=== PATIENT | female | born 1945 | race Caucasian/White ===

== ENCOUNTER 2021-12-14 08:33 | Observation (INO) ==
--- NOTE | 2021-11-10 09:55 | PAT Medication Instructions ---
Medication Instructions Date of Service November 10, 2021 Home Medications bisoprolol fumarate 10 mg tablet 10 mg PO QAM carbamide peroxide 6.5 % ear drops (Ear Wax Removal Drops) 5 drp OTIC (EAR) UD PRN cyanocobalamin (vitamin B-12) 1,000 mcg tablet (Vitamin B-12) 1,000 mcg PO QAM donepezil 10 mg tablet (Aricept) 10 mg PO QAM levocetirizine 5 mg tablet (Xyzal) 5 mg PO HS potassium chloride 10 mEq tablet,extended release 10 meq PO QAM sertraline 25 mg tablet 25 mg PO QAM Continue as directed carbamide peroxide 6.5 % ear drops (Ear Wax Removal Drops) 5 drp OTIC (EAR) UD PRN (if needed) DO NOT take the morning of surgery cyanocobalamin (vitamin B-12) 1,000 mcg tablet (Vitamin B-12) 1,000 mcg PO QAM potassium chloride 10 mEq tablet,extended release 10 meq PO QAM Take morning of surgery With a small sip of water, OTHERWISE NOTHING TO EAT OR DRINK AFTER MIDNIGHT: bisoprolol fumarate 10 mg tablet 10 mg PO QAM donepezil 10 mg tablet (Aricept) 10 mg PO QAM sertraline 25 mg tablet 25 mg PO QAM Take evening before surgery levocetirizine 5 mg tablet (Xyzal) 5 mg PO HS Other Notes If you have any questions please call us at [phone] or [phone] or [phone] or [phone]
--- NOTE | 2021-11-15 09:45 | Anesthesiology Consultation ---
Date of Service November 15, 2021 Assessment & Plan (1) Encounter for pre-operative examination: - COVID screening: Per assessment on 11/15: No known COVID-19 positive contacts or current COVID-19 related symptoms. Travel screen negative. Patient vaccinat ed. Surgeon arranging preop COVID testing (scheduled 12/12; [place]). Awaiting results. - Anesthesia: Discussed SAB- patient states she "does not believe in spinals" an d prefers general anesthesia if possible. Advised patient that ultimate decision will be made after discussion with patient/surgeon/anesthesiologist SAGE REINOSO. Chart Review Chart Review: Acceptable Risk for Surgery and Patient seen in Pre Admission Testing Teaching & Discussion Pre-Anesthesia Teaching/Discussion Notes: Instructed NPO after midnight before surgery,except medications with 15 cc of water. Medication instructions provided according to the PAT guidelines. History Surgery Operation Date: 12/14/21 09:15 Proposed Procedures p Right Total Knee Arthroplasty - Moreno Dukes DO Height/Weight Height: 5 ft 1 in Weight: 55.2 kg Allergies Allergy/AdvReac Type Severity Reaction Status Date / Time codeine AdvReac Severe [place] "out Verified 11/11/21 10:45 of my mind" morphine AdvReac Severe [place] "out Verified 11/11/21 10:45 of my mind" Medications Home Medications Medication Instructions Recorded Confirmed Last Taken bisoprolol fumarate 10 mg tablet 10 mg PO QAM 11/04/21 11/04/21 Unknown carbamide peroxide 6.5 % ear drops 5 drp OTIC (EAR) UD PRN 11/04/21 11/04/21 Unknown (Ear Wax Removal Drops) cyanocobalamin (vitamin B-12) 1,000 mcg PO QAM 11/04/21 11/04/21 Unknown 1,000 mcg tablet (Vitamin B-12) donepezil 10 mg tablet (Aricept) 10 mg PO QAM 11/04/21 11/04/21 Unknown levocetirizine 5 mg tablet (Xyzal) 5 mg PO HS 11/04/21 11/04/21 Unknown potassium chloride 10 mEq 10 meq PO QAM 11/04/21 11/04/21 Unknown tablet,extended release sertraline 25 mg tablet 25 mg PO QAM 11/04/21 11/04/21 Unknown Past Medical History Medical History Chronic back pain Degenerative disc disease Dementia "Early stages" A+Ox3 at PAT visit 11/15/21, lives alone/independently [id number] will be present postoperatively to aid with recovery Depression Hx of renal calculi Hypertension Exercise / Class Metabolic Activity II 4-5 Yardwork/Stairs/Walk up hill (one FS (no CP, no SOB)) Past Family History Family History Sister FHx: dementia Other No family history of adverse response to anesthesia Past Surgical History Surgical History History of appendectomy History of lithotripsy History of lumbar surgery x3 History of tonsillectomy S/P cataract extraction R/L S/P RADHA-BSO Past Anesthesia History No Hx of Anesthesia Complications and No Family Hx of Anesthesia Complications History of PONV No Hx of PONV and No Hx of Motion Sickness Social History Smoking Status: Never smoker Do You Dip or Chew Tobacco: No Hx Alcohol Use: Yes (Quit approximately ) Hx Substance Use: No substance use type: does not use Review of Systems Chronic, intermittent cough r/t allergies, unchanged. Patient denies chest pain, shortness of breath, dyspnea on exertion, fever, chills, palpitations. Physical Exam Vital Signs VITALS BP 115/63 P 66 TEMP 99.1 SP02 99%RA RESP 16 PHYSICAL Full cervical extension range of motion (+ cervicalgia). Full TMJ range of motion. TMD 2.5 finger breaths (small chin) Mallampati Score 1 Dentition: intact, upper front teeth implants Lungs: clear throughout to auscultation Cardiac: regular rate and rhythm, no murmurs noted Spine: normal Carotid arteries: negative bruit Extremities: no edema Short neck Lab Results Anesthesia Preop Results Results Anesthesia Widget: WBC 6.14 K/uL (4.8-10.8) 11/15/21 Hgb 13.4 g/dL (12.0-16.0) 11/15/21 Hct 40.4 % (37-47) 11/15/21 Plt 232 K/uL (130-400) 11/15/21 Na 141 mmol/L (136-145) 11/15/21 K 4.1 mmol/L (3.5-5.1) 11/15/21 Cl 104 mmol/L (98-107) 11/15/21 CO2 30 mmol/L (21-32) 11/15/21 BUN 15 mg/dl (6-23) 11/15/21 Creat 0.59 mg/dl (0.6-1.2) L 11/15/21 Glucose Level 135 mg/dl (70-99(Fasting)) H 11/15/21 PT 10.3 Seconds (9.0-12.0) 11/15/21 PTT 21.9 Seconds (21.0-31.0) 11/15/21 INR 1.0 (0.9-1.1) 11/15/21 HA1c 6.3 % (4.5-5.6) H 11/15/21 Urine Color Yellow 11/15/21 Urine Appearance Clear (Clear) 11/15/21 Urine pH 5.0 (4.5-7.5) 11/15/21 Urine Specific [place] 1.028 (1.000-1.030) 11/15/21 Urine Protein Negative (Negative) 11/15/21 Urine Glucose (UA) 2+ (Negative) H 11/15/21 Urine Ketones Trace (Negative) H 11/15/21 Urine Blood Negative (Negative) 11/15/21 Urine Nitrite Negative (Negative) 11/15/21 Urine Bilirubin Negative (Negative) 11/15/21 Urine Urobilinogen Negative (Negative) 11/15/21 Urine Leukocyte Esterase Negative (Negative) 11/15/21 Blood Type O Positive 11/15/21 Antibody Screen NEGATIVE 11/15/21 Testing Electrocardiogram Date: 11/15/21 Findings: + NSR @ (66) Chest X-Ray Date: 11/15/21 FINDINGS: The cardiomediastinal and hilar silhouettes are within normal limits. No pneumothorax, pleural effusion, airspace consolidation or overt pulmonary edema. Cholecystectomy. Degenerative changes of the shoulders and spine. IMPRESSION: No acute process. Stress Test Date: 08/05/18 Type: exercise No evidence of prior myocardial infarction or myocardial ischemia per conclusions. Fair exercise capacity for age. Equivocal exercise ECG for ischemia. Stress echo imaging negative for prior infarction or ischemia. EF gr eater than 50%.
--- NOTE | 2021-11-25 09:24 | History & Physical Report ---
Date of Service November 25, 2021 date of surgery: 12/14/21 Procedure: Right Total Knee Arthroplasty Surgeon: Moreno Dukes Assessment & Plan (1) Arthritis of right knee: Plan: Further care discussed with patient and at this point in time has failed conservative measures and would like to proceed with a right total knee replacement. Plan on discharge will be home with home health physical therapy. DVT prophylaxiswith TEDs, SCDs and will also place on aspirin 81 mg p.o. b.i.d. for a month postop. Patient will have follow up appointment in our office two weeks post op for staple/suture removal and re-evaluation. Patient otherwise has no other questions or concerns. The risks and benefits have been discussed including, but not limited to, risk of infection, nerve injury, stiffness, loss of motion, failure to improve, etc. Reasonable outcomes and options of treatment were discussed. An explanation of appropriate alternatives to the procedure that may be advantageous were discussed and their risks and benefits, as well as the risks and benefits of not proceeding with treatment. I offered to answer any additional inquiries concerning the treatment involved. All the patient's questions were answered. The patient is agreeable, understanding of the treatment plan and alternatives, and wishes to proceed with the treatment plan. History of Present Illness Chief Complaint: Right knee pain Primary Care Provider: NO PCP Destinee is a 76 year old who complains of right knee pain, presents for pre-op evaluation prior to a right total knee replacement by Dr Dukes at [facility]. she complains of pain, decreased range of motion and stiffness. Currently the patient states that the symptoms are moderate-severe. The pain is described as aching, sharp and throbbing. her symptoms are aggravated by ascending stairs, daily activities, first steps while awake walking. Prior NSAIDs include IBU and Aleve. she has been treated with previous cortisone, visco as well as fluid flow injections in the past without much relief. Allergies Allergy/AdvReac Type Severity Reaction Status Date / Time codeine AdvReac Severe [place] "out Verified 11/11/21 10:45 of my mind" morphine AdvReac Severe [place] "out Verified 11/11/21 10:45 of my mind" Home Medications Medication Instructions Recorded Confirmed Type bisoprolol fumarate 10 mg tablet 10 mg PO QAM 11/04/21 11/04/21 History carbamide peroxide 6.5 % ear drops 5 drp OTIC (EAR) UD PRN 11/04/21 11/04/21 History (Ear Wax Removal Drops) cyanocobalamin (vitamin B-12) 1,000 mcg PO QAM 11/04/21 11/04/21 History 1,000 mcg tablet (Vitamin B-12) donepezil 10 mg tablet (Aricept) 10 mg PO QAM 11/04/21 11/04/21 History levocetirizine 5 mg tablet (Xyzal) 5 mg PO HS 11/04/21 11/04/21 History potassium chloride 10 mEq 10 meq PO QAM 11/04/21 11/04/21 History tablet,extended release sertraline 25 mg tablet 25 mg PO QAM 11/04/21 11/04/21 History Past Med/Surg History Medical History Chronic back pain Degenerative disc disease Dementia "Early stages" A+Ox3 at PAT visit 11/15/21, lives alone/independently [id number] will be present postoperatively to aid with recovery Depression Hx of renal calculi Hypertension Surgical History History of appendectomy History of lithotripsy History of lumbar surgery x3 History of tonsillectomy S/P cataract extraction R/L S/P RADHA-BSO Family History Sister FHx: dementia Other No family history of adverse response to anesthesia Social History Smoking Status: Never smoker Second Hand Exposure: No; Hx Alcohol Use: Yes (Quit approximately ) Hx Substance Use: No Preferred Language: Wolof Communication Ability: Effective 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 Beliefs That Will Affect Care: None Current Living Situation: Alone Feels Safe at Home: Yes Assistive Devices: Cane and Walker Review of Systems Review of Systems: All systems reviewed & are unremarkable except as noted in HPI & below Constitutional: no fever, no chills and no sweats Respiratory: no cough and no dyspnea Cardiovascular: no chest pain, no dyspnea and no orthopnea Gastrointestinal: no abdominal pain, no nausea and no vomiting Musculoskeletal: as per Subjective / HPI Physical Exam Physical Exam: HT: 5ft 1in WT: 55.2kg Constitutional: WD/WN, vitals as above no acute distress Respiratory: normal respiratory effort, lungs clear to auscultation no respiratory distress, no labored breathing and does not use accessory muscles Cardiovascular: RRR, no murmur, no edema Gastrointestinal (Abdomen): normal bowel sounds, soft, nontender, no hepatosplenomegaly Musculoskeletal: Knee: + knee abnormal to inspection (RIGHT KNEE), + effusion (+1 effusion), + surgical incision (well healed portals), + limited ROM of knee (ROM 0/3/110), + knee ROM with crepitation, + joint line tenderness (medial joint line) and + Nimesh's sign positive; no deformity, no skin erythema, no ecchymosis, no valgus laxity, no varus laxity, anterior drawer test negative, Chanelle's sign negative and pivot shift test negative Results & Data Results & Data ([facility]) Diagnostic Findings Right Knee X-ray: Right knee series showing advanced degenerative changes to the right knee, narrowing of the medial compartment and patello-femoral joint with patellar spurring noted, findings showing joint space narrowing of the medial compartment and patello-femoral joint, osteophyte formation and subchondral sclerosis noted. overall varus alignment. no acute bony pathology noted.
[~2021-12-14 08:33] MED LIST: ACETAMINOPHEN 500 MG TAB PO SCH; BUPIVACAINE 0.5 % 5 MG/1 ML PF 10ML VIAL ONE; CeleBREX 200 MG CAP PO SCH; FAMOTIDINE 20 MG TAB PO SCH; GABAPENTIN 300 MG CAP PO SCH; LIDOCAINE 2% MPF LOCAL 5 ML VIAL INFIL ONE; LR 500ML BOLUS, THEN 15ML/HR IV SCH; METOCLOPRAMIDE HCL 10 MG TABLET PO SCH; MIDAZOLAM HCL 1 MG/ML 2ML VIAL ONE; ONDANSETRON INJ 2 MG/ML 2 ML VIAL ONE; PROPOFOL IV EMULSION 10 MG/ML 20 ML VIAL IV ONE; ROPIVACAINE 0.5% 5 MG/ML 30 ML VIAL ONE; ROPIVACAINE 0.5% HCL/PF 150 MG, BUPIVACAINE 0.75% MPF 20 ML, EPINEPHrine 30MG/30ML (OR ... INFIL SCH; TRANEXAMIC ACID 1,000 MG **IV Intra-op IV SCH; TRANEXAMIC ACID 1,000 MG **IV Pre-op IV SCH; ceFAZolin 2000MG 2,000 MG/15 ML SYR IV SCH; dexAMETHasone 4 MG TAB PO SCH; fentaNYL citrate 100 MCG/2 ML VIAL ONE
[2021-12-14] MEDS ORDERED: MIDAZOLAM HCL 1 MG/ML 2ML VIAL ONE (08:51)
[2021-12-14] MEDS ORDERED: PHENYLEPHRINE HCL 10 MG/ML VIAL ONE (09:02)
[2021-12-14] MEDS ORDERED: PROPOFOL IV EMULSION 10 MG/ML 20 ML VIAL IV ONE (09:45)
--- NOTE | 2021-12-14 09:58 | History & Physical Bridge Note ---
Date of Service December 14, 2021 History & Physical Bridge Note I have examined the patient, reviewed the History & Physical and in the interval since the performance of the History & Physical I have noted the following changes of clinical significance: no changes noted
[2021-12-14] MEDS ORDERED: ORTHO JOINT ANESTHETIC ONE (10:45)
[2021-12-14] MEDS ORDERED: ePHEDrine sulfate 50 MG/ML AMP IV PRN (10:53)
[2021-12-14] MEDS ORDERED: ATROPINE SULFATE 0.1 MG/ML 10ML SYR IV PRN (10:53)
[2021-12-14] MEDS ORDERED: ONDANSETRON INJ 2 MG/ML 2 ML VIAL IV PRN ×2 (10:53→15:50)
[2021-12-14] MEDS ORDERED: KETOROLAC 30 MG/ML VIAL IV PRN (10:53)
[2021-12-14] MEDS ORDERED: HYDROmorphone INJ 1 MG/ML SYRINGE IV PRN (10:53)
[2021-12-14] MEDS ORDERED: ePHEDrine sulfate 50 MG/ML AMP ONE (12:11)
--- NOTE | 2021-12-14 12:13 | Operative Report ---
Post Operative Report Pre & Post Diagnosis Operation Date: 12/14/21 10:30 Pre-Op Diagnosis: Right Knee Osteoarthritis Post-Op Diagnosis: Right Knee Osteoarthritis I identified the patient and participated in the time-out.: Yes Procedure Operation Date: 12/14/21 10:30 Actual Procedures p Right Total Knee Arthroplasty(Right) utilizing Oakes & XOG journey 2 patient matched total knee arthroplasty size femur 4 tibia to polyten patella 29 oval- Moreno Dukes DO Surgeon Moreno Dukes DO Drying Equipment Operator Chalo QURESHI Estimated Blood Loss 5 Findings Consistent with Post-Op Diagnosis Patient presents with severe end-stage tricompartmental DJD right knee with eburnated [id number] subchondral cystic changes marginal osteophytes moderate to large effusion Specimens Bone and cartilage Drains Medium bore Hemovac Anesthesia Type MAC Spinal Regional Complications none Disposition Accompanied Patient To Recovery: No Disposition: Recovery Room Indications Patient presents with severe end-stage tricompartmental DJD failed attempted conservative management clinic physical therapy anti-inflammatories relative rest activity modification corticosteroid injection viscosupplementation above intraoperative findings were noted Description of Procedure After proper prepping and draping of the Right lower extremity anterior midline incision was made over the region of the extensor extensor mechanism after meticulous hemostasis was obtained and maintained in subcutaneous tissues a medial parapatellar incision was made The patella was subluxed lateralward the medial lateral gutter were cleaned from any hypertrophic synovitis and scar tissue of the distal femoral block was placed and the distal femoral osteotomy cut was made subsequently the chamfers anterior and posterior osteotomy cuts were made utilizing the 4-in-1 block the tibia was subsequently subluxed anteriorward medial and ateral meniscal remnants were excised in their entirety remnants of the anterior and posterior cruciate ligaments were excised in their entirety excellent exposure of the proximal tibia was obtained the tibial osteotomy guide was placed on the proximal tibial osteotomy cut was made once again the knee was irrigated with copious amounts of sterile saline solution the patella was subsequently everted lateralward thickened scar tissue around the patella was removed the patella was subsequently cut utilizing a freehand technique and was drilled prepared for final preparation and placement of patella socially flexion-extension gaps were checked and the equal and symmetric trials were placed to the appropriate femoral and tibial trials with poly-spacer being placed for equal flexion and extension gaps and full range of motion including extension to 0 and flexion to 140 the trial components after having been taken to recovery range of motion was subsequently removed meticulous hemostasis was obtained and maintained subsequently a knee block injection of joint cocktail including ropivacaine 0.5% 150 mg. Bupivacaine 0.5% epinephrine 1-200,030 mL's toradol 30 mg dexamethasone 4 mg ketamine 10 mg clonidine 100 micrograms normal saline solution 30 mg was infiltrated into the soft tissues of the posterior knee medial lateral gutters and periosteal synovium special attention was paid to protect neurovascular structures at all times subsequently trial components having been removed the knee was irrigated with sterile saline solution. debris was removed the proximal tibia was subsequently prepared and was made ready for the placement of the tibial component tibial component was also cemented and tamped into position the femoral component was subsequently placed and cemented in the position the patellar component was subsequently cemented in position because hemostasis once again obtained and maintained wound having been thoroughly irrigated with debridement and debridement lavage was performed as well as a medial parapatellar incision closed with #1 Vicryl in interrupted fashion subcutaneous was closed with #2 Vicryl skin was closed with skin clips. PA-C was necessary for prepping and drapping as well as wound closure of deep fascia Sub cutaneous tissue and skin and was necessary for the case. A sterile compressive dressing was placed patient was taken to recovery in stable condition of report dictated by Ernst I attest to the content of the Intraoperative Record and any orders documented therein. Any exceptions are noted below.Due to the complex nature of the procedure, the entire surgery was performed with the operational assistance of Chalo QURESHI. The patient care assistant, under direct supervision, was involved in the actual performance of all aspects of the surgical procedure including hemostasis, tissue retraction and incision, instrument management, patient positioning, and wound closure. I attest to the content of the Intraoperative Record and any orders documented therein. Any exceptions are noted below.
--- NOTE | 2021-12-14 14:00 | XRay Report ---
RIGHT KNEE 2 VIEWS History: Right total knee arthroplasty. Degenerative arthritis. Postop. FINDINGS: The patient is status post a right total knee arthroplasty. The hardware is intact. No frac ture or dislocation. Surgical drains are in place. IMPRESSION: Right total knee arthroplasty. No evidence for hardware complication. ACT 112: Negative or not required by law. Electronically signed by: Derrick Davison M.D. 12/14/2021 1:59 PM
--- NOTE | 2021-12-14 14:14 | Anesthesiology Progress Note ---
Date of Service December 14, 2021 Anesthesia Post Procedure Vital Signs Vital Signs: Temp Pulse Pulse Resp BP Pulse Ox O2 Del Method 12/14/21 14:05 66 12 101/55 L 96 Nasal Cannula 12/14/21 13:55 64 17 100/59 L 92 Nasal Cannula 12/14/21 13:45 36.2 C L 65 19 101/58 L 95 Nasal Cannula 12/14/21 13:35 67 13 99/57 L 98 Oxymask 12/14/21 13:25 71 15 109/60 96 Oxymask 12/14/21 13:15 68 12 103/62 96 Oxymask 12/14/21 13:05 73 12 101/60 100 Oxymask 12/14/21 12:55 36.0 C L 72 14 105/54 L 95 Oxymask 12/14/21 08:59 36.9 C 57 L 16 154/79 H 95 Room Air O2 Flow Rate 12/14/21 14:05 2 12/14/21 13:55 2 12/14/21 13:45 2 12/14/21 13:35 2 12/14/21 13:25 4 12/14/21 13:15 6 12/14/21 13:05 9 12/14/21 12:55 9 12/14/21 08:59 Pain Intensity Right Knee: Pain Intensity: 0 Transfer of Care Handoff Completed per policy Notes Mental Status: alert / awake / arousable Patient Amnestic to Procedure: Yes Nausea / Vomiting: adequately controlled Pain: adequately controlled Airway Patency, RR, SpO2: stable & adequate BP & HR: stable & adequate Hydration State: stable & adequate Neuraxial Anesthesia: was administered and sensory block is resolving Anesthetic Complications: no major complications apparent
[2021-12-14] MEDS ORDERED: HYDROmorphone INJ 0.5 MG/0.5 ML SYR IV PRN (15:50)
[2021-12-14] MEDS ORDERED: traMADol HCL 50 MG TABLET PO PRN (15:50)
[2021-12-14] MEDS ORDERED: MAGNESIUM HYDROXIDE SUSP 30 ML UDC PO PRN (15:50)
[2021-12-14] MEDS ORDERED: bisacodyL 10 MG SUPP PR PRN (15:50)
[2021-12-14] MEDS ORDERED: NALOXONE HCL 0.4 MG/1 ML VIAL/CARP IV PRN (15:50)
[2021-12-14] MEDS ORDERED: diphenhydrAMINE 50 MG/ML VIAL IV PRN (15:50)
[2021-12-14] MEDS: ACETAMINOPHEN 500 MG TAB PO SCH ×2 (16:23→21:56)
[2021-12-14] MEDS: SODIUM CHLORIDE 0.9% 1000ML 1,000 ML IV SCH (16:23)
[2021-12-14] MEDS: ceFAZolin 1000MG 1,000 MG/7.5 ML SYR IV SCH (18:48)
[2021-12-14] MEDS: ASPIRIN 81 MG ECTAB PO SCH (20:10)
[2021-12-14] MEDS: DOCUSATE SODIUM 100 MG CAP PO SCH (20:10)
[2021-12-14] MEDS ORDERED: SENNA 8.6 MG TAB PO SCH (21:00)
[2021-12-15] MEDS: SODIUM CHLORIDE 0.9% 1000ML 1,000 ML IV SCH (02:30)
[2021-12-15] MEDS: ceFAZolin 1000MG 1,000 MG/7.5 ML SYR IV SCH (03:16)
[2021-12-15] MEDS ORDERED: HALOPERIDOL LACTATE 5 MG/ML 1 ML VIAL IM STA (04:42)
[2021-12-15] MEDS: ACETAMINOPHEN 500 MG TAB PO SCH ×2 (06:02→13:56)
--- NOTE | 2021-12-15 07:37 | Orthopedic Progress Note ---
Date of Service December 15, 2021 Assessment & Plan (1) History of total right knee replacement: Plan: POD #1 s/p right TKA pt/ot dvt proph with CARLIN/SCD/ASA she does live alone and discussed rehab, she is not interested in this, states her family member is coming to stay with her for a few weeks, will discuss w/ CM poss HHPT Admission and Anticipated Discharge Date Admission Date: December 14, 2021 Supervising Physician Co-Signing Physician Notes Patient seen and examined. Agree with TITUS Larry's note as above. Patient is doing very well. She has been ambulating very frequently in the hallway today without difficulty. She denies significant pain. She feels ready to go home. Plan for discharge. Subjective POD #1 s/p Right TKA she is alert and oriented, in restraints. was combative last evening. Review of Systems Constitutional: no fever, no chills and no sweats Respiratory: no cough and no dyspnea Cardiovascular: no chest pain and no dyspnea Gastrointestinal: no abdominal pain, no nausea and no vomiting Physical Exam Physical Exam: Vital Signs Temp 37.2 C 12/15/21 06:51 Pulse 68 12/15/21 06:51 Resp 18 12/15/21 06:51 BP 126/76 12/15/21 06:51 Pulse Ox 97 12/15/21 06:51 O2 Del Method 12/15/21 06:51 O2 Flow Rate 2 12/14/21 18:35 Intake & Output 12/14/21 12/15/21 12/15/21 18:59 06:59 18:59 Intake Total 1100 / 2300 1200 / 2300 Output Total 5 / 465 460 / 465 Balance 1095 / 1835 740 / 1835 Weight 55.6 kg Intake: IV 200 / 1400 1200 / 1400 Lactated Ringe r's 1,000 ml @ 15 0 / 0 mls/hr IV .Q24 H DAILY Rx#: [id number] Sodium Chlorid e 0.9% 1000ML 1, 1200 / 1200 000 ml @ 100 m ls/hr IV .Q10H DAILY Rx#:[id number] Tranexamic Aci d / 0.7% NaCl 1, 200 / 200 000 mg In 100 ml @ 600 mls/hr IV TODAY@0600 DAILY Rx#:[id number] IV Perioperative 900 / 900 Output: Estimated Blood Loss 5 / 5 Drain Output 460 / 460 Right Knee 460 / 460 Other: # Unmeasured Voi ds 1 Weight Measureme nt Method Standing Scale Musculoskeletal: Right Leg: NVDI, calf SNT, negative althea sign. DP palpable, able to wiggle toes/ankle movement without difficulty. dressing clean dry and intact. Results & Data ([facility]) Vital Signs (Past 12 Hours) Vital Signs Temp Pulse Resp BP BP Pulse Ox O2 Del Method 12/15/21 06:51 37.2 C 68 18 126/76 97 Room Air 12/15/21 04:00 71 20 139/81 96 Room Air 12/14/21 22:48 36.4 C L 61 16 115/65 94 Room Air
--- NOTE | 2021-12-15 08:14 | Hospitalist Consultation ---
Date of Consultation December 15, 2021 Assessment & Plan (1) History of total right knee replacement: POD #1 s/p right TKA pt/ot dvt proph with CARLIN/SCD/ASA she does live alone and discussed rehab, she is not interested in this, states her family member is coming to stay with her for a few weeks, will discuss w/ CM poss HHPT (2) Agitation: Unclear if the patient has dementia. I talked to her sister who says that Ms. Aguilar does get agitated from time to time. The patient is convinced that an ambulance tried to take her out of the hospital last night. Could be baseline. Could be delirium in the setting of hospitalization and recent anesthesia. Patient also takes benadryl - d/c in the setting of delirium. Reviewed home meds and the medical record is accurate. rest of care per primary team Plan FENI: regular DVT ppx: ASA 81 mg BID code status: full dispo: med/surg Supervising Physician Co-Signing Physician Notes I personally examined the patient and verified all brown points of history and exam, discussed case, and agree with decision making with Dr Perez. wondering when dr warren will see her. otherwise no acute complaints vitals noted nad heent nc at mmm breathing unlabored no accesssory muscles good effort skin no rashes no pallor or icterus agitation - seems to be doing OK w reassurance/support medically stable - OK for dc from hospitalist perspective otherwise as above History of Present Illness Reason for Consultation: Med Rec Attending Physician: Moreno Warren DO History of Present Illness Ms. Aguilar is a 76 y/o female who is POD-1 R TKR. Patient in restraints as she is attempting to remove her drain. The patient is agitated and confused. History is limited. Allergies Allergy/AdvReac Type Severity Reaction Status Date / Time codeine AdvReac Severe [place] "out Verified 12/14/21 08:58 of my mind" morphine AdvReac Severe [place] "out Verified 12/14/21 08:58 of my mind" Home Medications Medication Instructions Recorded Confirmed Type bisoprolol fumarate 10 mg tablet 10 mg PO QAM 11/04/21 12/14/21 History carbamide peroxide 6.5 % ear drops 5 drp otic (ear) UD PRN ear 11/04/21 12/14/21 History (Ear Wax Removal Drops) fullness cyanocobalamin (vitamin B-12) 1,000 mcg PO QAM 11/04/21 12/14/21 History 1,000 mcg tablet (Vitamin B-12) donepezil 10 mg tablet (Aricept) 10 mg PO QAM 11/04/21 12/14/21 History levocetirizine 5 mg tablet (Xyzal) 5 mg PO HS 11/04/21 12/14/21 History potassium chloride 10 mEq 10 meq PO QAM 11/04/21 12/14/21 History tablet,extended release sertraline 25 mg tablet 25 mg PO QAM 11/04/21 12/14/21 History acetaminophen 500 mg tablet 1,000 mg PO Q8 #0 tabs 12/15/21 Rx (Tylenol Extra Strength) aspirin 81 mg tablet,delayed 81 mg PO BID 30 days #60 tabs 12/15/21 Rx release tramadol 50 mg tablet 50 - 100 mg PO Q6 PRN pain #20 tabs 12/15/21 Rx Patient History Medical History Chronic back pain Degenerative disc disease Dementia "Early stages" A+Ox3 at PAT visit 11/15/21, lives alone/independently [id number] will be present postoperatively to aid with recovery Depression Hx of renal calculi Hypertension Surgical History History of appendectomy History of lithotripsy History of lumbar surgery x3 History of tonsillectomy S/P cataract extraction R/L S/P RADHA-BSO Family History Sister FHx: dementia Other No family history of adverse response to anesthesia Social History Smoking Status: Never smoker Second Hand Exposure: No; Do You Dip or Chew Tobacco: No; Tobacco Cessation Education Requested by Patient: No Hx Alcohol Use: No Hx Substance Use: No Preferred Language: British Communication Ability: Effective Lion Tamer Required: No Beliefs That Will Affect Care: None marital status: / Current Living Situation: Alone How many Children do You have: 0 Other Information That Helps Us Care for You: No Feels Safe at Home: Yes Safety Concerns: Feels Safe At This Time Assistive Devices: Cane and Walker Assistive Devices Comment: dental implants x2 Review of Systems Musculoskeletal: as per Subjective / HPI Physical Exam Physical Exam: Vital Signs Temp 37.2 C 12/15/21 06:51 Pulse 68 12/15/21 06:51 Resp 18 12/15/21 06:51 BP 126/76 12/15/21 06:51 Pulse Ox 97 12/15/21 06:51 O2 Del Method 12/15/21 06:51 O2 Flow Rate 2 12/14/21 18:35 Intake & Output 12/14/21 12/15/21 12/15/21 18:59 06:59 18:59 Intake Total 1100 / 2300 1200 / 2300 Output Total 5 / 465 460 / 465 Balance 1095 / 1835 740 / 1835 Weight 55.6 kg Intake: IV 200 / 1400 1200 / 1400 Lactated Ringe r's 1,000 ml @ 15 0 / 0 mls/hr IV .Q24 H DAILY Rx#: [id number] Sodium Chlorid e 0.9% 1000ML 1, 1200 / 1200 000 ml @ 100 m ls/hr IV .Q10H DAILY Rx#:[id number] Tranexamic Aci d / 0.7% NaCl 1, 200 / 200 000 mg In 100 ml @ 600 mls/hr IV TODAY@0600 DAILY Rx#:[id number] IV Perioperative 900 / 900 Output: Estimated Blood Loss 5 / 5 Drain Output 460 / 460 Right Knee 460 / 460 Other: # Unmeasured Voi ds 1 Weight Measureme nt Method Standing Scale Constitutional: WD/WN, vitals as above no acute distress Neck: normal visual inspection Respiratory: normal respiratory effort, lungs clear to auscultation normal respiratory effort; no respiratory distress, no labored breathing and does not use accessory muscles Auscultation: lungs clear to auscultation bilaterally Cardiovascular: RRR, no murmur, no edema Rate/Rhythm: regular rate and regular rhythm Musculoskeletal: Patient s/p R TKR. Limb is wrapped in an [place]ia [place]sario bandage. Clean, dry intact, no strike through. Psychiatric: agitated, redirectable Results & Data Results & Data ([facility]) Vital Signs (Past 12 Hours) Vital Signs Temp Pulse Resp BP BP Pulse Ox O2 Del Method 12/15/21 06:51 37.2 C 68 18 126/76 97 Room Air 12/15/21 04:00 71 20 139/81 96 Room Air 12/14/21 22:48 36.4 C L 61 16 115/65 94 Room Air Laboratory Results 12/14/21 Range/Units 08:47 SARS-CoV-2, RNA, NAAT NEGATIVE (NEGATIVE) Diagnostic Findings Knee X-Ray 12/14/21 13:53 RIGHT KNEE 2 VIEWS History: Right total knee arthroplasty. Degenerative arthritis. Postop. FINDINGS: The patient is status post a right total knee arthroplasty. The hardware is intact. No fracture or dislocation. Surgical drains are in place. IMPRESSION: Right total knee arthroplasty. No evidence for hardware complication. ACT 112: Negative or not required by law. Electronically signed by: Derrick Davison M.D. 12/14/2021 1:59 PM Resident Activity Tracking Resident Involvement: Resident Care Provided Care Provided: Adult Hospital Medicine
[2021-12-15] MEDS ORDERED: MULTIVITAMIN TAB PO SCH (09:00)
[2021-12-15] MEDS ORDERED: BISOPROLOL FUMARATE 5 MG TAB PO SCH (09:00)
[2021-12-15] MEDS ORDERED: POTASSIUM CHLORIDE 10 MEQ TABCR PO SCH (09:00)
[2021-12-15] MEDS ORDERED: CYANOCOBALAMIN (B-12) 500 MCG TABLET PO SCH (09:00)
[2021-12-15] MEDS ORDERED: DONEPEZIL HCL 10 MG TAB PO SCH ×2 (09:00→10:45)
[2021-12-15] MEDS: DOCUSATE SODIUM 100 MG CAP PO SCH (09:08)
[2021-12-15] MEDS: ASPIRIN 81 MG ECTAB PO SCH (09:09)
[2021-12-15] MEDS: SERTRALINE HCL 50 MG TABLET PO SCH ×2 (09:09→09:13)
[2021-12-15 09:35] LABS: Hematocrit (blood only) 32.7 % (34.1-44.9); Hemoglobin 11.1 g/dl (12.0-16.0); Mean Corpuscular Hemoglobin 30.8 pg (25.0-34.0); Mean Corpuscular Hgb Conc 33.9 g/dL (32.0-36.0); Mean Corpuscular Volume 90.8 fL (80.0-100.0); Mean Platelet Volume 10.2 fL (9.4-12.3); Platelet Count 166 K/uL (130-400); RDW Coefficient of Variation 12.4 % (11.5-14.5); RDW Standard Deviation 40.5 fL (36.4-46.3); White Blood Count 18.17 K/ul (4.8-10.8)
[2021-12-15 09:59] LABS: BUN Creatinine Ratio 23.1 (10-20); Calcium 8.2 mg/dl (8.5-10.1); Creatinine Clr Calc Pharmacy 57.3 ml/min; Est GFR (African American) 99.3 ml/min; Est GFR (Non-African American) 85.6 ml/min; Potassium 3.5 mmol/L (3.5-5.1)
--- NOTE | 2021-12-15 18:10 | Billing Data ---
Date of Service December 15, 2021 Coding Level of Care Code 22879 Subseq Hosp Care Lvl 1
== END 2021-12-15 16:32 | disposition home or self-care (01) ==
LOC: ASU 08:33 → PACUINP 08:33 → 3W 15:39